=== PATIENT | female | born 1985 | race American Indian/Alaskan Native ===

== ENCOUNTER 2020-12-04 19:10 | Emergency (ER) | payer SELFPAY ==
[2020-12-05 02:08] VITALS: BP 168/87
== END 2020-12-05 01:35 | disposition home or self-care (01) ==
LOC: ED 19:10
DX: E11.9 Type 2 diabetes mellitus without complications (principal); R03.0 Elevated blood-pressure reading, without diagnosis of hypertension; R07.89 Other chest pain; Z79.899 Other long term (current) drug therapy
CPT/HCPCS: 36415; 71046; 80053; 81001; 82805; 82962; 83735; 84484; 84703; 85025; 93005